=== PATIENT | male | born 1960 | race Caucasian/White ===

== ENCOUNTER 2020-06-19 12:24 | Observation (INO) | payer MEDICAID, OTHER ==
[2020-06-19] MEDS ORDERED: ceFAZolin 2 GM in SODIUM CHLORIDE 0.9% 100ML 100 ML IV STA (12:34)
[2020-06-19] MEDS ORDERED: HYDROmorphone 1 MG/ML CARPUJECT IVP STA ×2 (12:34→13:07)
--- NOTE | 2020-06-19 12:36 | ED Physician Documentation ---
PD HPI LOWER EXT INJURY - Stated complaint Stated Complaint: LT ANKLE INJ - History obtained from History obtained from: Patient - History of Present Illness PD HPI LOW EXT INJURY LOCATION: Left Type of injury: Blunt / blow Timing - onset: Today Timing - details: Still present Pain level max: 10 - Additional information Additional information: He was at home working, a log rolled onto his left ankle he felt a crunch like it broken. He is not able to walk or bear weight. He has been n.p.o. for so lids since about 8 AM but he had liquids right around noon. Review of Systems Ten Systems: 10 systems reviewed and negative Constitutional: reports: Reviewed and negative Ears: reports: Reviewed and negative Throat: reports: Reviewed and negative Cardiac: reports: Reviewed and negative Respiratory: reports: Reviewed and negative PD PAST MEDICAL HISTORY - Allergies Allergies/Adverse Reactions: Allergies Allergy/AdvReac Type Severity Reaction Status Date / Time No Known Drug Allergies Allergy Verified 06/19/20 12:51 PD ED PE NORMAL - Vitals Vital signs reviewed: Yes - General General: Alert and oriented X 3, No acute distress - HEENT HEENT: PERRL, EOMI - Neck Neck: Supple, no meningeal sign, No bony TTP - Cardiac Cardiac: RRR, No murmur - Respiratory Respiratory: No respiratory distress, Clear bilaterally - Abdomen Abdomen: Soft, Non tender - Back Back: No CVA TTP, No spinal TTP - Derm Derm: Normal color, Warm and dry - Extremities Extremities: Other (The appearance is that of bimalleolar fracture with about a 1 cm open laceration on the medial side of the left ankle. Normal pedal pulses and sensation.) - Neuro Neuro: Alert and oriented X 3, Normal speech - Psych Psych: Normal mood, Normal affect Results - Vitals Vitals: Vital Signs - 24 hr 06/19/20 06/19/20 06/19/20 12:46 12:56 13:45 Temperature 36.4 C L Heart Rate 69 74 74 Respiratory 20 14 16 Rate Blood Pressure 166/97 H 166/97 H 153/89 H O2 Saturation 99 97 98 06/19/20 06/19/20 13:51 14:05 Temperature Heart Rate 71 69 Respiratory 15 14 Rate Blood Pressure 153/89 H 142/99 H O2 Saturation 98 98 Oxygen O2 Source Room air - Labs Labs: Laboratory Tests 06/19/20 06/19/20 06/19/20 12:50 12:50 12:50 WBC 10.0 RBC 4.45 L Hgb 14.1 Hct 41.6 L MCV 93.5 MCH 31.7 H MCHC 33.9 RDW 13.3 Plt Count 201 MPV 10.2 Neut # (Auto) 6.1 Lymph # (Auto) 2.9 [place] # (Auto) 0.8 Eos # (Auto) 0.2 Baso # (Auto) 0.1 Absolute Nucleated RBC 0.00 Nucleated RBC % 0.0 PT 12.3 INR 1.1 Sodium 136 Potassium 3.7 Chloride 99 L Carbon Dioxide 24 Anion Gap 13.0 BUN 14 Creatinine 0.9 Estimated GFR (MDRD) 86 L Glucose 133 H Calcium 8.9 Total Bilirubin 0.8 AST 18 ALT 18 Alkaline Phosphatase 60 Total Protein 7.2 Albumin 4.1 Globulin 3.1 Albumin/Globulin Ratio 1.3 Lipase 22 - Rads (name of study) Three-view areas the x-ray of the left ankle Radiology: EMP read contemporaneously (Comminuted displaced distal fibular shaft fracture and oblique fracture involving the posterior malleolus to the tibiotalar joint with dorsal subluxation at the tibiotalar joint and markedly widened ankle mortise. Extensive subcutaneous emphysema consistent with open fracture.) Procedures - Splint (location) LLE Splint applied by: PhysicianYana Type of splint: Fiberglass, Short leg, Posterior Other: Patient tolerated well, No complications, Neurovascular intact - Reduction Body part reduced: Left, Ankle Fracture or dislocation: Fracture dislocation Reduction aftercare: Alignment improved - Procedural sedation Sedation prep: Informed consent, Time out completed, ASA 1 - healthy Sedation medications: propofol (80mg IVP x1) Patient status during sedation: Responds to tactile, Vitals remained stable, Maintained airway, Recovered uneventfully Sedation recovery: Recovered uneventfully Time in sedation (Minutes): 10 PD MEDICAL DECISION MAKING - ED course ED course: 59-year-old gentleman with open fracture dislocation of the left ankle. N.p.o. for solids since 8 AM and liquid since noon. Spoke with the on-call orthopedic surgeon, Dr. Coelho. He will take him to the OR but has case he has to do first and requested that we temporize him by reducing and splinting him. Departure - Departure Disposition: ED Transfer to [facility] Clinical Impression: Open fracture ankle, trimalleolar Qualifiers: Encounter type: initial encounter Open fracture type: open type I or II Laterality: left Qualified Code(s): S82.852B - Displaced trimalleolar fracture of left lower leg, initial encounter for open fracture type I or II Condition: Serious
[2020-06-19] MEDS ORDERED: ceFAZolin 1 GM VIAL ONE (12:49)
[2020-06-19 13:05] LABS: BASOPHILS # (AUTO) 0.1 10^3/uL (0.0-0.1); BASOPHILS % (AUTO) 0.6 %; EOSINOPHILS # (AUTO) 0.2 10^3/uL (0.0-0.7); EOSINOPHILS % (AUTO) 1.8 %; HGB - HEMOGLOBIN 14.1 g/dL (14.0-18.0); LYMPHOCYTES # (AUTO) 2.9 10^3/uL (1.5-3.5); LYMPHOCYTES % (AUTO) 28.7 %; MEAN CORPUSCULAR HEMOGLOBIN 31.7 pg (27.0-31.0); MEAN CORPUSCULAR HGB CONC 33.9 g/dL (32.0-36.0); MEAN CORPUSCULAR VOLUME 93.5 fL (80.0-94.0); MEAN PLATELET VOLUME 10.2 fL (7.4-11.4); MONOCYTES # (AUTO) 0.8 10^3/uL (0.0-1.0); MONOCYTES % (AUTO) 7.9 %; NEUTROPHILS # (AUTO) 6.1 10^3/uL (1.5-6.6); NEUTROPHILS % (AUTO) 60.6 %; PLT - PLATELET COUNT 201 10^3/uL (130-450); RED BLOOD COUNT 4.45 10^6/uL (4.70-6.10); RED CELL DISTRIBUTION WIDTH 13.3 % (12.0-15.0)
[2020-06-19 13:10] LABS: INR 1.1 (0.8-1.2); PT - PROTHROMBIN TIME 12.3 secs (9.9-12.6)
[2020-06-19 13:22] LABS: ALBUMIN 4.1 g/dL (3.2-5.5); ALBUMIN/GLOBULIN RATIO 1.3 (1.0-2.2); BILIRUBIN,TOTAL 0.8 mg/dL (0.2-1.0); CALCIUM 8.9 mg/dL (8.5-10.3); CREATININE 0.9 mg/dL (0.6-1.2); TOTAL PROTEIN 7.2 g/dL (6.7-8.2)
[2020-06-19] MEDS ORDERED: PROPOFOL 200 MG/20 ML VIAL IVP STA (13:25)
--- NOTE | 2020-06-19 13:26 | XRAY Report ---
PROCEDURE: Ankle 3 View LT INDICATIONS: open frx TECHNIQUE: 3 views of the ankle were acquired. COMPARISON: None FINDINGS: Bones: Acute comminuted distal fibular shaft fracture is seen with dorsal and lateral displacement an d slight angulation at fracture site. Displaced small fracture fragments are also seen. There is also an acute fracture involving posterior malleolus extending to distal tibial plafond. Slight dorsal tavarez bluxation at tibiotalar joint is seen. Marked widening of medial ankle mortise is also noted. No lester k dislocation. No suspicious bony lesions. Soft tissues: No tibiotalar joint effusion. Extensive subcutaneous emphysema is seen. Marked soft ti ssue swelling around ankle joint is seen. Achilles tendon appears normal. IMPRESSION: 1. Acute comminuted and displaced distal fibular shaft fracture and acute oblique fracture involving posterior malleolus extending to tibiotalar joint. 2. Dorsal subluxation at tibiotalar joint and markedly widened medial ankle mortise. 3. Extensive subcutaneous emphysema surrounding distal fibular shaft fracture site consistent with op en fracture. Reviewed by: Johnny Sanders MD on 06/19/2020 1:25 PM PDT Approved by: Johnny Sanders MD on 06/19/2020 1:25 PM PDT Station ID: [id number]
--- NOTE | 2020-06-19 14:49 | ANESTHESIA ---
Pre-Anesthesia VS, & Labs - Diagnosis L bimalleolar ankle fx (open) - Procedure ORIF L ankle Vital Signs: Temp Pulse Resp BP Pulse Ox 36.4 C L 69 14 142/99 H 98 06/19/20 12:46 06/19/20 14:05 06/19/20 14:05 06/19/20 14:05 06/19/20 14:05 Height: 5 ft 11 in Weight (kg): 90.718 kg Body Mass Index: 27.8 BMI Classification: Overweight - NPO >8 hours Last Fluid Intake: small liquids, noon - Lab Results Current Lab Results: Laboratory Tests 06/19/20 12:50: Sodium 136, Potassium 3.7, Chloride 99 L, Carbon Dioxide 24, Anion Gap 13.0, BUN 14, Creatinine 0.9, Estimated GFR (MDRD) 86 L, Glucose 133 H , Calcium 8.9, Total Bilirubin 0.8, AST 18, ALT 18, Alkaline Phosphatase 60, Total Protein 7.2, Albumin 4.1, Globulin 3.1, Albumin/Globulin Ratio 1.3, Lipase 22 06/19/20 12:50: PT 12.3, INR 1.1 06/19/20 12:50: WBC 10.0, RBC 4.45 L, Hgb 14.1, Hct 41.6 L, MCV 93.5, MCH 31.7 H , MCHC 33.9, RDW 13.3, Plt Count 201, MPV 10.2, Neut # (Auto) 6.1, Lymph # (Auto) 2.9, [place] # (Auto) 0.8, Eos # (Auto) 0.2, Baso # (Auto) 0.1, Absolute Nucleated RBC 0.00, Nucleated RBC % 0.0 Lab results reviewed: Yes Fish Bones: 06/19/20 12:50 06/19/20 12:50 Home Medications and Allergies Allergies/Adverse Reactions: Allergies Allergy/AdvReac Type Severity Reaction Status Date / Time No Known Drug Allergies Allergy Verified 06/19/20 12:51 Anes History & Medical History - Anesthetic History Anesthesia Complications: reports: No previous complications Family history of Anesthesia Complications: Denies Family history of Malignant Hyperthermia: Denies - Medical History Smoking Status: Current every day smoker - Surgical History Orthopedic: Other (arm surgery at R forearm) Exam General: Alert, Oriented x3, Cooperative Dental: WNL Mouth Openin Fingerbreadth Neck Mobility: Normal Mallampati classification: II Thyromental Distance: greater than 6 cm Respiratory: Normal breath sounds Cardiovascular: Regular rate Neurological: Normal speech Mental/Cognitive Status: Alert/Oriented X3, Normal for patient Cognitive Status: Within normal limits Plan Anesthesia Type: General, Femoral Block (pre-op in ED), Sciatic Nerve Block (possible) Consent for Procedure(s) Verified and Reviewed: Yes Code Status: Attempt Resuscitation ASA classification: 2-Mild systemic disease Is this case an emergency?: Yes
[2020-06-19] MEDS ORDERED: HYDROmorphone 0.5 MG/0.5 ML SYRINGE IVP PRN (17:11)
[2020-06-19] MEDS ORDERED: NALOXONE 0.4 MG/ML VIAL IVP PRN (17:11)
[2020-06-19] MEDS ORDERED: ePHEDrine 50 MG/ML VIAL IVP PRN (17:11)
[2020-06-19] MEDS ORDERED: fentaNYL 100 MCG/2 ML VIAL IVP PRN (17:11)
[2020-06-19] MEDS ORDERED: ATROPINE ABBOJECT 1 MG/10 ML SYRINGE IVP PRN (17:11)
[2020-06-19] MEDS ORDERED: MORPHINE 2 MG/ML CARPUJECT IVP PRN ×2 (17:11→21:19)
[2020-06-19] MEDS ORDERED: ONDANSETRON 4 MG/2 ML VIAL IVP PRN ×2 (17:11→21:19)
[2020-06-19] MEDS ORDERED: METOCLOPRAMIDE 10 MG/2 ML VIAL IVP PRN (17:11)
--- NOTE | 2020-06-19 17:30 | HISTORY & PHYSICAL EXAMINATION ---
HPI - History Obtained From History obtained from: Patient Exam limitations: No limitations, Other (pain) - History of Present Illness HPI Comment/Other: This is a 59-year-old man who sustained injury to his left ankle earlier today at home when a heavy log came down and rolled onto his left foot causing his ankle to forcibly twist as well as receiving a direct blow from the log. He felt an audible pop and crunching sensation, immediate deformity and inability to bear weight on left ankle. He came to the emergency room after injury. He does not seem to have any neurovascular symptoms but does have laceration over the medial ankle. He has marked pain to the ankle area but nowhere else. He denies chest pain, dizziness, syncope or loss of consciousness associated with injury. He denies previous problems with left ankle. He is normally active and ambulatory. His general health is been good. He does have a history of GERD, previous orthopedic surgery to right forearm many years ago. He is a non- smoker, uses marijuana and drinks about 2 beers per day. He has no allergies and is not on any regular medications PMH/PSH - Past Surgical History Ortho: positive: Other (arm surgery at R forearm) Social & Family Hx - Social History Does the pt smoke?: Yes Smoking Status: Current every day smoker Does the pt drink ETOH?: Yes Does the pt have substance abuse?: No - POLST Patient has POLST: No Meds/Allgy - Allergies Allergies/Adverse Reactions: Allergies Allergy/AdvReac Type Severity Reaction Status Date / Time No Known Drug Allergies Allergy Verified 06/19/20 12:51 Exam - Vital Signs Vital Signs: Vital Signs x48h Temp Pulse Resp BP Pulse Ox 06/19/20 16:34 36.6 C 66 16 144/93 H 99 06/19/20 14:05 69 14 142/99 H 98 06/19/20 13:51 71 15 153/89 H 98 06/19/20 13:45 74 16 153/89 H 98 06/19/20 12:56 74 14 166/97 H 97 06/19/20 12:46 36.4 C L 69 20 166/97 H 99 - Physical Exam General Appearance: positive: Severe distress Eyes Bilateral: positive: Normal inspection ENT: positive: ENT inspection nml Neck: positive: Nml inspection Respiratory: positive: Chest non-tender, No respiratory distress Cardiovascular: positive: Regular rate & rhythm Peripheral Pulses: positive: 2+ Abdomen: positive: Non-tender Extremities: negative: Other (Left knee nontender without effusion or synovitis) Neurologic/Psychiatric: positive: Oriented x3, Motor nml, Sensation nml Results - Lab Results Fish Bones: 06/19/20 12:50 06/19/20 12:50 Other Lab Results: Lab Results x24hrs 06/19/20 06/19/20 06/19/20 Range/Units 12:50 12:50 12:50 WBC 10.0 (4.8-10.8) x10^3/uL RBC 4.45 L (4.70-6.10) 10^6/uL Hgb 14.1 (14.0-18.0) g/dL Hct 41.6 L (42.0-52.0) % MCV 93.5 (80.0-94.0) fL MCH 31.7 H (27.0-31.0) pg MCHC 33.9 (32.0-36.0) g/dL RDW 13.3 (12.0-15.0) % Plt Count 201 (130-450) 10^3/uL MPV 10.2 (7.4-11.4) fL Neut # (Auto) 6.1 (1.5-6.6) 10^3/uL Lymph # (Auto) 2.9 (1.5-3.5) 10^3/uL [place] # (Auto) 0.8 (0.0-1.0) 10^3/uL Eos # (Auto) 0.2 (0.0-0.7) 10^3/uL Baso # (Auto) 0.1 (0.0-0.1) 10^3/uL Absolute Nucleated RBC 0.00 x10^3/uL Nucleated RBC % 0.0 /100WBC PT 12.3 (9.9-12.6) secs INR 1.1 (0.8-1.2) Sodium 136 (135-145) mmol/L Potassium 3.7 (3.5-5.0) mmol/L Chloride 99 L (101-111) mmol/L Carbon Dioxide 24 (21-32) mmol/L Anion Gap 13.0 (6-13) BUN 14 (6-20) mg/dL Creatinine 0.9 (0.6-1.2) mg/dL Estimated GFR (MDRD) 86 L (>89) Glucose 133 H (70-100) mg/dL Calcium 8.9 (8.5-10.3) mg/dL Total Bilirubin 0.8 (0.2-1.0) mg/dL AST 18 (10-42) IU/L ALT 18 (10-60) IU/L Alkaline Phosphatase 60 (42-121) IU/L Total Protein 7.2 (6.7-8.2) g/dL Albumin 4.1 (3.2-5.5) g/dL Globulin 3.1 (2.1-4.2) g/dL Albumin/Globulin Ratio 1.3 (1.0-2.2) Lipase 22 (22-51) U/L - Diagnostic Imaging Results Diagnostic Imaging Results: negative: Read independently (The medial malleolus appears to have a small fracture below the joint line. There also has a fracture in the metaphyseal region extending from the lateral cortex into the metaphysis. This latter fracture appears to be an incomplete fracture. The marvin us is markedly subluxed laterally with a very wi) Impression/Plan - Problem List Problem List: Grade 2 open fracture dislocation left ankle The plan is irrigation debridement of open fracture, open reduction internal fixation left ankle. I have discussed the risk, goals and alternatives including disability associated with this injury. I have discussed procedure specific and general complications including posttraumatic arthritis, infection, need for hardware removal. He is in agreement to the surgery and has signed an informed consent giving us permission to do his surgery which will be done on an urgent basis with over night stay. He received a 2 g bolus intravenously of Ancef and had a close reduction performed by our emergency room physician and splint application prior to surgery.
[2020-06-19] MEDS ORDERED: MIDAZOLAM 2 MG/2 ML VIAL IVP ONE (17:44)
[2020-06-19] MEDS ORDERED: PROPOFOL 200 MG/20 ML VIAL IVP ONE (17:44)
[2020-06-19] MEDS ORDERED: ACETAMINOPHEN 1,000 MG/100 ML 100 ML IV ONE (17:44)
[2020-06-19] MEDS ORDERED: KETOROLAC 30 MG/ML VIAL IVP ONE (17:44)
[2020-06-19] MEDS ORDERED: ONDANSETRON 4 MG/2 ML VIAL IVP ONE (17:44)
[2020-06-19] MEDS ORDERED: DEXAMETHASONE 4 MG/ML VIAL IVP ONE (17:44)
[2020-06-19] MEDS ORDERED: fentaNYL 100 MCG/2 ML VIAL IVP ONE (17:44)
[2020-06-19] MEDS ORDERED: LIDOCAINE-MPF 2% 5 ML VIAL IM ONE (17:44)
[2020-06-19] MEDS ORDERED: LACTATED RINGERS 1,000 ML IV SCH (18:00)
[2020-06-19] MEDS ORDERED: BACITRACIN ZINC OINT 1 PACKET TOP ONE (20:53)
[2020-06-19] MEDS ORDERED: ACETAMINOPHEN 1,000 MG/100 ML 100 ML IV PRN (21:19)
[2020-06-19] MEDS ORDERED: SODIUM CHLORIDE FLUSH 0.9% 10 ML SYRINGE IVP PRN (21:19)
--- NOTE | 2020-06-19 21:27 | OPERATIVE REPORT ---
Operative Report - General Procedure Date: 06/19/20 Planned Procedure: Irrigation debridement open bimalleolar equivalent fracture dislocation left ankle with open reduction internal fixation Pre-Op Diagnosis: Open fracture dislocation left ankle, bimalleolar equivalent Procedure Performed: Irrigation debridement open left ankle fracture including skin, bone and joint; open reduction internal fixation left fibula, open reduction syndesmosis left ankle and repair of deltoid ligament left ankle - Procedure Note Primary Surgeon: Last García M.D. Secondary Surgeon: LOGAN Garzon Anesthesia Provider: Mayank Raymundo Anesthesia Technique: General ET tube, Regional block Estimated Blood Loss (mL): 50 Indications: This is a 59-year-old man who sustained an isolated injury to left ankle earlier today when a log fell on his left foot, direct blow by log and twisting injury leading to open fracture dislocation of left ankle. He had immediate pain and marked difficulty bearing any weight on left ankle. He had no previous history of problems to left ankle. Findings: The fibular fracture was several centimeters above the ankle joint and was transverse. The fibular fracture was a shaft fracture. The medial malleolus was completely intact as well as the posterior plafond. The deltoid ligament was completely ruptured as well as part of the retinaculum to the posterior tibial tendon. Both the posterior tibial tendon and deltoid ligament were invaginated into the tibiotalar joint. There was abrasion to the medial dome of the talus. There is a 1 mm x 1 mm x 5 mm articular cartilage defect to the anterolateral aspect of the tibial plafond.The distal syndesmosis was ruptured.The wound about the medial ankle measured 1-1/2 to 2 cm and was transverse. The wound was grossly clean.The skin laceration is relatively sharp. Complications: None noted - Other Other Information/Narrative: This is a 59-year-old man brought to the operating room table for an isolated left ankle injury. He was placed in a supine position with a gel bags beneath the left buttock to help with internal rotation. The left leg was placed on a foam bolster. A pneumatic tourniquet had been applied to the proximal left thigh over cast padding to prevent any skin injury. A U drape was placed distal to the pneumatic tourniquet. The left lower extremity was prepped and draped in a sterile manner in usual fashion. Because of the open fracture, Betadine prep was utilized. A timeout procedure was performed by the entire operating room team and all were in agreement. The incision over the medial ankle was extended proximally and distally to expose the zone of injury and the ankle joint. The wound and ankle joint were irrigated with 9 L of normal saline using gravity lavage. The tibiotalar joint was then reduced by removing the soft tissue that was entrapped in the tibiotalar joint. A second longitudinal incision was made over the lateral fibula. A subperiosteal dissection was performed exposing the fracture site of the fibular shaft. The superficial peroneal nerve was protected. The fracture was reduced over a bolster and facilitated by bone clamps. An 8 hole one third tubular plate was applied with fourth cortical screw was inserted proximal and distal to the fracture. An anatomic reduction was achieved and good stability to the fracture was achieved. The ankle is still unstable and for this reason a deltoid repair was performed. A Arthrex4.5 mm suture anchor with 3 sets of #2 FiberWire was inserted through a small drill hole in the tip of the medial malleolus. The anchor was secured and was stable to traction. The suture was then placed through the deltoid ligament and medial capsule and then tied with the ankle in slight varus. This gave excellent stability to the ankle. The syndesmosis appeared to be unstable and for this reason a invisi knotBy SNF nephewWas inserted to the distal syndesmosis just below the the fibular plate and was secured with a lateral button and a medial Endobutton. This stabilizes syndesmosis nicely. The ankle was stable. Biplanar imaging was obtained and showed good alignment of the ankle mortise and fracture. The wounds were irrigated. The subcutaneous tissue was closed with 2-0 Vicryl the skin over the fibular incision was closed with pipo. The medial malleolar incision was closed in a similar fashion. Bacitracin, Xeroform and a very well-padded short leg fiberglass posterior splint was applied. He did receive 2 g of Ancef while in the emergency room and 4 hours later an additional 2 g of Ancef intravenously were given.
[2020-06-19] MEDS ORDERED: LACTATED RINGERS 1,000 ML IV ONE (21:34)
--- NOTE | 2020-06-19 22:20 | ANESTHESIA POST OP EVALUATION ---
Anesthesia Post Eval - Post Anesthesia Eval Vitals: Last Vital Signs Temp 36.2 C L 06/19/20 22:10 Pulse 86 06/19/20 22:10 Resp 14 06/19/20 22:10 BP 150/91 H 06/19/20 22:10 Pulse Ox 95 06/19/20 22:10 CV Function Including HR & BP: positive: Stable Pain Control: positive: Satisfactory Nausea & Vomiting: positive: Negative Mental Status: positive: Baseline Respiratory Status: Airway Patent Hydration Status: Satisfactory Anesthesia Complications: positive: None
[2020-06-20] MEDS: SODIUM CHLORIDE FLUSH 0.9% 10 ML SYRINGE IVP SCH ×2 (00:18→10:02)
[2020-06-20] MEDS: ceFAZolin 2 GM in SODIUM CHLORIDE 0.9% 100ML 100 ML IV SCH ×2 (00:18→05:47)
[2020-06-20] MEDS ORDERED: ASPIRIN 325 MG TABLET PO SCH (08:00)
[2020-06-20] MEDS: oxyCODONE 5 MG TABLET PO PRN ×2 (08:52→13:11)
[2020-06-20] MEDS: ACETAMINOPHEN 325 MG TABLET PO PRN ×2 (08:52→13:11)
--- NOTE | 2020-06-20 10:20 | XRAY Report ---
PROCEDURE: OR C-Arm Procedure INDICATIONS: ORIF LEFT ANKLE FRACTURE TECHNIQUE: Fluoroscopy provided for ORIF of the left ankle. COMPARISON: None. FINDINGS: Lateral compression plate and multiple transverse screws are fixing distal fibular diaphyseal fractur e. One image demonstrates a device securing the ankle mortise at the level of the syndesmosis. IMPRESSION: 1. Fluoroscopy provided for left ankle ORIF. Reviewed by: Georgiana Muñoz MD on 06/20/2020 10:18 AM PDT Approved by: Georgiana Muñoz MD on 06/20/2020 10:18 AM PDT Station ID: [id number]
--- NOTE | 2020-06-20 11:45 | PHARMACY PROGRESS NOTE ---
- Best Possible Medication History Admit Date and Time: 06/19/202118 Processed by: Pharmacy Medication History completed: Yes Patient Interview: Pt interview ONLY source As the person ultimately responsible for medication therapy, providers are able to order a medication from an existing home medication list in [facility] via the "Reconcile Routine" prior to Confirmation of that medication by administrative support assistant. Such practice is discouraged except when the physician, in their clinical judgment, deems that a medical need exists for a medication without regard to previous use.
[2020-06-20 13:02] VITALS: BP 152/83
--- NOTE | 2020-06-24 08:27 | PROVIDER PROGRESS NOTE ---
Subjective - General Admit Date: 06/19/20 Procedure Date: 06/19/20 Post Op Days: 5 Procedure Performed: Postop reduction and ORIF and deltoid ligament repair left ankle - Review of Systems Wound/Incisions: positive: Healing well General: positive: No symptoms (Dressing clean and dry. Patient still under the effects of anesthesia) - Other Other Information/Narrative: Patient is a 59-year-old male who had a Dislocation and open Bimalleolar equivalent fracture of left ankle. Patient was brought to the OR where his left ankle was reduced his open fracture and wound washed out he had ORIF of the left ankle bimalleolar equivalent fracture and soft tissue repair. Patient was rounded on the next morning where he was still under the effects of anesthesia and just had low level pain. His dressing was clean and dry. Patient was stable Objective - Lab Results Lab Results: 06/19/20 12:50 06/19/20 12:50 Impression/Plan - Problem List Problem List: Patient is a 59-year-old man who had a logrolling to his left ankle suffered an open dislocation and fracture in his left ankle. Patient was brought into surgery at [facility] onn 12 06/19/[address] sinclair performed a reduction of the ankle cleanout of the joint and open fracture and an ORIF of the bimalleolar fracture along with soft tissue closure. Final diagnosis is postop reduction and ORIF of deltoid ligament repair left ankle Patient was rounded on this morning on 06/20/2020 where he was found to be in good spirits with no complaints at this time. Patient was most likely still under the effects of the regional block anesthesia. Patient was counseled on his dressing change which is to be performed by the provider in his first postop visit. Patient was counseled on multimodality pain control to include icing the limb and elevating the limb using [id number] medication such as Tylenol and/or ibuprofen [id number] and using his oxycodone prescription for breakthrough pain as needed. Patient has a follow-up appointment already scheduled with the clinic. Patient's status was stable for discharge. Patient was discharged on 06/20/2022 his home
== END 2020-06-20 13:30 | disposition home or self-care (01) ==
LOC: ED 12:24 → SDS 17:00 → MS3 21:18 → SDS 21:18 → MS3 21:19
PROVIDERS: ADMIT Orthopaedic Surgery; ATTEND Physician Assistant
DX: S82.842B Displaced bimalleolar fracture of left lower leg, initial encounter for open fracture type I or II (principal); S93.422A Sprain of deltoid ligament of left ankle, initial encounter; W20.8XXA Other cause of strike by thrown, projected or falling object, initial encounter; Y92.017 Garden or yard in single-family (private) house as the place of occurrence of the external cause; F17.200 Nicotine dependence, unspecified, uncomplicated; K21.9 Gastro-esophageal reflux disease without esophagitis
CPT/HCPCS: 27695; 27784; 27788; 36415; 73610; 80053; 83690; 85025; 85610; 96365; 96366; 96375; 97116; 97161; 97165; 99152; 99284; 99285; A9270; C1713; G0378; J0131; J1170; J7120; 94770

== ENCOUNTER 2020-08-05 07:31 | Outpatient (CLI) | payer MEDICAID ==
--- NOTE | 2020-08-05 16:33 | XRAY Report ---
PROCEDURE: Ankle 3 View LT INDICATIONS: LEFT BIMALLEOLAR FRACTURE TECHNIQUE: 3 views of the ankle were acquired. COMPARISON: X-ray ankle 06/19/2020 FINDINGS: Bones: Interval ORIF of the distal fibula. Hardware is intact and there is relatively good anatomic a lignment. Medial malleoli are fixation screw is present. Ankle mortise is normally aligned. No suspi cious bony lesions. Soft tissues: No tibiotalar joint effusion. Achilles tendon appears normal. IMPRESSION: 1. Good anatomic alignment of ORIF of distal fibular fracture. 2. Nondisplaced posterior malleoli or fracture. Reviewed by: Bethany Potter MD on 08/05/2020 4:32 PM PST Approved by: Bethany Potter MD on 08/05/2020 4:32 PM [facility] Station ID: [id number]
== END 2020-08-05 23:59 | disposition home or self-care (01) ==
LOC: DI.WCP 07:31
PROVIDERS: ATTEND Orthopaedic Surgery
DX: S82.842D Displaced bimalleolar fracture of left lower leg, subsequent encounter for closed fracture with routine healing (principal)

== ENCOUNTER 2020-09-30 15:47 | Outpatient (CLI) | payer MEDICAID ==
--- NOTE | 2020-09-30 16:32 | XRAY Report ---
PROCEDURE: Ankle 3 View LT INDICATIONS: L ANKLE FX TECHNIQUE: 3 views of the ankle were acquired. COMPARISON: 08/05/2020 FINDINGS: Bones: Unchanged alignment of plate and screw fixation of the distal fibula. Tight rope procedure als o noted. Tibiotalar degenerative sclerosis and spurring. Plantar calcaneal spur. Soft tissues: No tibiotalar joint effusion. Achilles tendon appears normal. IMPRESSION: Unchanged alignment Reviewed by: Pravin Brown MD on 09/30/2020 4:31 PM PST Approved by: Pravin Brown MD on 09/30/2020 4:31 PM PST Station ID: [id number]
== END 2020-09-30 23:59 | disposition home or self-care (01) ==
LOC: DI.N 15:47
PROVIDERS: ATTEND Orthopaedic Surgery
DX: S82.842B Displaced bimalleolar fracture of left lower leg, initial encounter for open fracture type I or II (principal); M77.32 Calcaneal spur, left foot